=== PATIENT | female | born 1995 | race Caucasian/White ===

== ENCOUNTER 2020-03-13 14:14 | Emergency (ER) | payer OTHER ==
[~2020-03-13] VITALS: Ht 160 cm; Wt 68.0 kg
[2020-03-13] MEDS ORDERED: TUSNEL LIQUID178 ML PO (21:10)
[2020-03-13] MEDS ORDERED: ZITHROMAX500 MG PO (21:10)
[2020-03-13] MEDS ORDERED: DOLOGEN CAPLET1 EACH PO (21:10)
== END 2020-03-13 21:17 | disposition home or self-care (01) ==
LOC: ER 14:14
DX: B34.9 Viral infection, unspecified (principal); Z20.828 Contact with and (suspected) exposure to other viral communicable diseases